=== PATIENT | male | born 1955 | race Caucasian/White ===

== ENCOUNTER → 2017-11-20 | Outpatient (CLI) | payer OTHER ==
[~2017-11-20] MED LIST: EPIPEN0.3 MG/0.3; FINA5; GLIP5; LOSA50; METF500; TAMS.4ER
[2017-11-20 19:29] LABS: Influenza A Positive (NEGATIVE); Influenza B Negative (NEGATIVE)
== END ==
LOC: LAB SHORT 18:10 → LAB 18:10
PROVIDERS: Physician Assistant
DX: R05 Cough (principal); R50.9 Fever, unspecified; R52 Pain, unspecified; R68.89 Other general symptoms and signs
CPT/HCPCS: 87804

== ENCOUNTER 2018-01-03 13:08 | Day surgery (SDC) | payer OTHER ==
[~2018-01-03] VITALS: Ht 177.8 cm; Wt 110.6 kg
== END 2018-01-03 15:05 | disposition home or self-care (01) ==
LOC: ORSCSDS 13:08
PROVIDERS: Internal Medicine Gastroenterology
PROC: 0DBK8ZX Excision of Ascending Colon, Via Natural or Artificial Opening Endoscopic, Diagnostic (ICD-10-PCS; principal; 2018-01-03 14:30)
PROC: 0DBM8ZX Excision of Descending Colon, Via Natural or Artificial Opening Endoscopic, Diagnostic (ICD-10-PCS; principal; 2018-01-03 14:30)
PROC: 0DBL8ZX Excision of Transverse Colon, Via Natural or Artificial Opening Endoscopic, Diagnostic (ICD-10-PCS; principal; 2018-01-03 14:30)
DX: Z12.11 Encounter for screening for malignant neoplasm of colon (principal); D12.2 Benign neoplasm of ascending colon; D12.3 Benign neoplasm of transverse colon; D12.4 Benign neoplasm of descending colon; K64.8 Other hemorrhoids; K57.30 Diverticulosis of large intestine without perforation or abscess without bleeding; Z86.010 Personal history of colon polyps; Z80.0 Family history of malignant neoplasm of digestive organs; E11.9 Type 2 diabetes mellitus without complications; G47.33 Obstructive sleep apnea (adult) (pediatric); Z79.84 Long term (current) use of oral hypoglycemic drugs; Z79.899 Other long term (current) drug therapy
CPT/HCPCS: 82947; 88305; J7120

== ENCOUNTER 2021-03-10 09:32 | Day surgery (SDC) | payer OTHER ==
[~2021-03-10] VITALS: Ht 177.8 cm; Wt 115.7 kg
== END 2021-03-10 11:44 | disposition home or self-care (01) ==
LOC: ORSCSDS 09:32
PROVIDERS: Orthopaedic Surgery
PROC: 01N54ZZ Release Median Nerve, Percutaneous Endoscopic Approach (ICD-10-PCS; principal; 2021-03-10 10:45)
DX: G56.02 Carpal tunnel syndrome, left upper limb (principal); I10 Essential (primary) hypertension; F17.210 Nicotine dependence, cigarettes, uncomplicated; G47.33 Obstructive sleep apnea (adult) (pediatric); E11.9 Type 2 diabetes mellitus without complications; Z79.84 Long term (current) use of oral hypoglycemic drugs; Z79.899 Other long term (current) drug therapy; E66.01 Morbid (severe) obesity due to excess calories; Z68.41 Body mass index [BMI] 40.0-44.9, adult
CPT/HCPCS: 82947; J2250; J2704; J3010

== ENCOUNTER → 2022-01-06 | Outpatient (CLI) | payer OTHER | END | disposition home or self-care (01) | LOC: LAB SHORT 11:18 | DX: L82.1 Other seborrheic keratosis (principal) | CPT/HCPCS: 88305 ==